=== PATIENT | female | born 1955 | race Caucasian/White ===

== ENCOUNTER → 2018-11-07 | Outpatient (CLI) | payer MEDICARE, OTHER ==
--- NOTE | 2018-11-07 13:22 | REP ---
Bilateral lower extremity duplex venous ultrasound: Reflux exam. History: Venous insufficiency. Findings: The deep veins are anechoic and fully compressible from the groin to the popliteal fossa bilaterally on two-dimensional scanning. Color flow and spectral Doppler interrogation show no evidence to suggest DVT. There is a Contreras's cyst visible on the left measuring 6.7 x 1.7 x 3.0 cm. There is no evidence of deep vein thrombosis. Reflux findings: No deep or superficial system reflux is observed in the right lower extremity. The greater saphenous vein measures 4.6 mm in AP dimension proximally at the saphenofemoral junction, 3.7 mm in AP dimension at the thigh, 3.0 mm in AP dimension at the knee. The lesser saphenous vein is 3.0 mm in diameter as well. On the left, there is minimal reflux greater than 0.5 seconds in duration in the common femoral vein and in the proximal greater saphenous vein as well as in the mid superficial femoral vein. The greater saphenous vein measures 4.6 mm in AP dimension at midthigh and 3.5 mm at the knee on the left side. The lesser saphenous vein measures 2.8 mm. There is 0.8 seconds of reflux in the popliteal vein on the left as well. Impression: Minimal reflux in the left proximal greater saphenous vein, mid superficial femoral vein and popliteal vein on the left side. Left-sided Contreras's cyst. Electronically Signed by Benoit Landers MD 11/07/2018 07:38 P
== END ==
LOC: M RAD 10:11
PROVIDERS: ATTEND Surgery Vascular Surgery
DX: I87.2 Venous insufficiency (chronic) (peripheral) (principal); I83.813 Varicose veins of bilateral lower extremities with pain

== ENCOUNTER 2019-01-04 10:51 | Day surgery (SDC) | payer OTHER ==
[~2019-01-04] VITALS: Ht 160 cm; Wt 45.4 kg
[~2019-01-04 10:51] MED LIST: CALC600T60 PO; CYMB1CAP5 PO; D 50CAP PO; GABA800T4 PO; KETOROLAC 60 MG/2 ML VIAL (J1885) As Ordered ONE; LIDOCAINE 2% INJ 100 MG/5 ML SDV (FOR ANES.) As Ordered ONE; LIDOCAINE W/EPINEPHRINE 1% 20ML VIAL As Ordered ONE; LR 1,000 ML IV ONE; MIDAZOLAM INJ 2 MG/2 ML VIAL (J2250) As Ordered ONE; MIRA0.5T PO; MULT1TAB10 PO; OMEP20CA3 PO; ONDANSETRON 4MG/2ML VIAL (J2405) As Ordered ONE; OXYC1SOL3 PO; PRAV10TA3 PO; PROPOFOL 200 MG/20 ML VIAL As Ordered ONE; SOMA350T PO; TRAZ-163 PO; VICO7.5T11 PO; VITAD1000T PO; WELLTAB40 PO; dexameTHASONE 4 MG/ML 1ML VIAL (J1100) As Ordered ONE; fentaNYL 100 MCG/2 ML INJECTION (J3010) As Ordered ONE
[2019-01-04] MEDS: fentaNYL 100 MCG/2 ML INJECTION (J3010) IV PRN ×4 (14:05→14:20)
[2019-01-04] MEDS: PERCOCET 5MG/325MG TAB PO PRN ×2 (14:05→14:35)
[2019-01-04] MEDS ORDERED: PERCOCET 5MG/325MG TAB As Ordered ONE (14:06)
[2019-01-04] MEDS ORDERED: fentaNYL 100 MCG/2 ML INJECTION (J3010) As Ordered ONE (14:06)
[2019-01-04] MEDS ORDERED: ONDANSETRON 4MG/2ML VIAL (J2405) IV PRN (14:15)
[2019-01-04] MEDS ORDERED: LR 1,000 ML IV SCH (14:15)
[2019-01-04 15:15] VITALS: BP 120/74
--- NOTE | 2019-01-23 10:39 | RO ---
DATE OF PROCEDURE: 01/04/2019 PREPROCEDURE DIAGNOSIS: Bilateral lower extremity varicose veins. POSTOPERATIVE DIAGNOSIS: Bilateral lower extremity varicose veins. PROCEDURE: Left leg varicose vein stab phlebectomy with greater than 20 phlebectomies. SURGEON: Dr. Tricia Leung CABLE TELEVISION PROGRAM DIRECTOR: INDICATION: The patient is a 63-year-old female with diffuse varicose veins in both lower extremity, which are painful. The patient has tried conservative therapy with compression stockings and elevation and continues to have pain in the varicosities in both lower extremities, the left being more symptomatic than the right. The patient will undergo stab phlebectomy of the left lower extremity varicose veins. Risks, benefits and alternative treatment options were discussed with the patient. ANESTHESIA: General LMA. ESTIMATED BLOOD LOSS: 25 mL. IV FLUIDS: 1000 mL. SPECIMENS: Left lower extremity varicose veins. COMPLICATIONS: None. DRAINS: None. IMPLANTS: None. DESCRIPTION OF PROCEDURE: The patient was taken to the operating room and placed supine on the operating room table and prepped and draped in the standard surgical fashion. The varicose veins in the left lower extremity had been marked in the standing position in the preoperative holding area. Stab phlebectomy of varicose veins was then performed with the stab phlebectomy sites being closed using sarita. Dressings were then applied. The patient tolerated the procedure well. All instrument, sponge, needle counts were correct at the end the case. There were no complications. Dr. Leung was present for and directed the entire case. The patient was transferred to the recovery room awake, alert, extubated and in stable condition.
== END 2019-01-04 15:33 | disposition home or self-care (01) ==
LOC: M SDC 10:51
PROVIDERS: ATTEND Surgery Vascular Surgery
DX: I83.813 Varicose veins of bilateral lower extremities with pain (principal); I87.2 Venous insufficiency (chronic) (peripheral); I25.10 Atherosclerotic heart disease of native coronary artery without angina pectoris; E16.2 Hypoglycemia, unspecified; M79.7 Fibromyalgia; F41.9 Anxiety disorder, unspecified; F32.9 Major depressive disorder, single episode, unspecified; G62.9 Polyneuropathy, unspecified; T88.59XD Other complications of anesthesia, subsequent encounter; Z88.0 Allergy status to penicillin; Z88.5 Allergy status to narcotic agent; Z88.8 Allergy status to other drugs, medicaments and biological substances; Z79.899 Other long term (current) drug therapy; Z72.0 Tobacco use; Z95.5 Presence of coronary angioplasty implant and graft; Z90.710 Acquired absence of both cervix and uterus; Z98.84 Bariatric surgery status
CPT/HCPCS: 37766; 88300; J1100; J1885; J2250; J2405; J3010

== ENCOUNTER → 2024-04-08 | Outpatient (CLI) | payer OTHER ==
[~2024-04-08] MED LIST changes: +CHOL100029 PO; -KETOROLAC 60 MG/2 ML VIAL (J1885) As Ordered ONE; -LIDOCAINE 2% INJ 100 MG/5 ML SDV (FOR ANES.) As Ordered ONE; -LIDOCAINE W/EPINEPHRINE 1% 20ML VIAL As Ordered ONE; -LR 1,000 ML IV ONE; -MIDAZOLAM INJ 2 MG/2 ML VIAL (J2250) As Ordered ONE; +OMEP1CAP73 PO; -OMEP20CA3 PO; -ONDANSETRON 4MG/2ML VIAL (J2405) As Ordered ONE; -PROPOFOL 200 MG/20 ML VIAL As Ordered ONE; -TRAZ-163 PO; +TRAZ-257 PO; -VICO7.5T11 PO; +VICO7.5T12 PO; -VITAD1000T PO; -dexameTHASONE 4 MG/ML 1ML VIAL (J1100) As Ordered ONE; -fentaNYL 100 MCG/2 ML INJECTION (J3010) As Ordered ONE
== END ==
LOC: M PLARAD 11:51
PROVIDERS: ATTEND Surgery
DX: R91.1 Solitary pulmonary nodule (principal)
CPT/HCPCS: 78815; A9552